=== PATIENT | female | born 2000 | race Caucasian/White ===

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

== ENCOUNTER → 2018-06-30 | Day surgery (SDC) | payer BC ==
[~2018-06-30] MED LIST: Lactated Ringers 1,000 ML IV SCH; Propofol 200 MG/20 ML SDV IV ONE
[2018-06-30 12:04] VITALS: BP 115/65
--- NOTE | 2018-07-03 09:52 | OR ---
DATE OF OPERATION: 06/30/2018 PREOPERATIVE DIAGNOSIS: HEMATOCHEZIA. POSTOPERATIVE DIAGNOSIS: HEMATOCHEZIA. SURGEON: Jeremie Tamez MD PROCEDURE: FULL-LENGTH COLONOSCOPY WITH BIOPSY X1. ANESTHESIA: MAC via [employer]. COMPLICATIONS: None. SPECIMEN: Terminal ileum biopsy x1. FINDINGS: Normal full-length colonoscopy. RECOMMENDATIONS: Medical follow up. INDICATIONS: The patient had an episode of two days of hematochezia with some abdominal pain. She was evaluated in [place], [place]. Workup was negative. They recommended a diagnostic colonoscopy. DESCRIPTION OF PROCEDURE: The patient was prepped and draped, placed in the left lateral decubitus position. A lubricated Olympus colonoscope was inserted and easily advanced to the cecum. I was able to directly visualize the ileocecal valve and appendiceal orifice. We intubated into the terminal ileum. I could find no signs of any inflammatory bowel disease. I did do a routine biopsy for thoroughness. No gross abnormalities were seen. The scope was brought back into the cecal pouch. Throughout the entire length of the rest of the colon, I could find no signs of any polyps, mass, ulceration, or bleeding sites. No vascular abnormalities or signs of colitis. There were no diverticula. The rectal vault was unremarkable. Retroflexion showed no perianal lesions or hemorrhoids. Air was suctioned. The scope was removed without complication. SIVA/EBER /[id number]
== END ==
LOC: CC.SDS 10:12
PROVIDERS: ATTEND Family Medicine
DX: K92.1 Melena (principal); R10.9 Unspecified abdominal pain; K21.9 Gastro-esophageal reflux disease without esophagitis; G93.2 Benign intracranial hypertension; N94.6 Dysmenorrhea, unspecified; E66.01 Morbid (severe) obesity due to excess calories; Z79.3 Long term (current) use of hormonal contraceptives
CPT/HCPCS: 36415; 84703; J2704; J7120